=== PATIENT | female | born 1950 | race African-American/Black ===

== ENCOUNTER → 2016-09-17 | Outpatient (CLI) | payer BC ==
[~2016-09-17] MED LIST: ACTOS; ACTOS PO; AMARYL; AMARYL PO; B-COMPLEX1 TAB PO; BYDUREON P2 MG/0.65 SUBQ; BYSTOLIC5 MG PO; CALCIUM 500 + D1 TAB; CALCIUM 500 + D1 TAB PO; CELECOXIB200 MG PO; CINNAMON ALPHA1 EACH PO; FERROUS SULFATE; FLEXERIL PO; LIPITOR; LIPITOR PO; LISINOPRIL; METFORMIN; METFORMIN PO; MULTI-VITAMIN1 TAB; MUSCLE RELAXER; NORVASC; NORVASC PO; PREMPRO 0.3 MG/1 TAB PO; PROGESTERONE PO; PROGESTERONE200 MG PO
[2016-09-17 12:11] LABS: BLOOD UREA NITROGEN 21 mg/dL (9-23); CALCIUM SERUM 9.7 mg/dL (8.4-10.2); CARBON DIOXIDE 28 mmol/L (22-31); CHLORIDE 104 mmol/L (100-111); CREATININE SERUM 0.7 mg/dL (0.6-1.4); GLOM FILT RATE Estimated ABOVE60 mL/min (>60); GLUCOSE FASTING 114 mg/dL (70-110); POTASSIUM 4.1 mmol/L (3.5-5.1); SODIUM 140 mmol/L (135-145)
== END | disposition home or self-care (01) ==
LOC: CLAB 10:31
PROVIDERS: Internal Medicine Endocrinology, Diabetes & Metabolism
DX: E11.65 Type 2 diabetes mellitus with hyperglycemia (principal); E78.4 Other hyperlipidemia
CPT/HCPCS: 36415; 80048; 83036

== ENCOUNTER → 2016-12-11 | Outpatient (CLI) | payer BC ==
--- NOTE | ~2016-12-11 | US37 ---
[facility] A Service of [facility] & [facility] RADIOLOGY TEXT RESULTS PATIENT: TORIBIO MALAVE LOCATION: CNIV : 50 UNIT #: [id number] AGE: [address]: Kayleigh Barrera MD SEX: F ORDER DR: [id number] [facility] [address] [place], [place] [address] [id number] O MR#: [id number] Acc #: [id number] NAME: TORIBIO MALAVE : 1950 SEX: F STUDY DATE/TIME: 12/11/2016 15:33 UNIT: CNIV ROOM: STUDY DESCRIPTION: US Carotid W/Doppler Bilateral Attending Physician: Kayleigh Barrera M.D. Referring Physician: Kayleigh Barrera M.D. Ordering Physician: Kayleigh Barrera M.D. Primary Care Physician: Kayleigh Barrera M.D. MEDICAL IMAGING REPORT This report is preliminary unless electronic signature is present EXAM Carotid duplex scan, 12/11/2016. HISTORY Dizziness and headaches. FINDINGS The right common carotid artery has no significant plaque. The right internal and external carotid arteries are patent without plaque. Peak systolic velocity in the mid right internal carotid artery is 64 cm/sec with an end diastolic velocity of 18 cm/sec. The ICA:CCA ratio on the right is 0.63. Peak systolic velocity in the right external carotid artery is 92 cm/sec. The right vertebral artery is patent with antegrade flow. The left common carotid artery has no significant plaque. The left internal and external carotid arteries are patent without plaque. Peak systolic velocity in the mid left internal carotid artery is 63 cm/sec, with an end diastolic velocity of 18 cm/sec. The ICA:CCA ratio on the left is 0.67. Peak systolic velocity in the left external carotid artery is 70 cm/sec. The left vertebral artery is patent with antegrade flow. IMPRESSION 1. Normal examination of the internal and external carotid arteries bilaterally. No significant stenosis of the carotid arteries on either side. 2. Patient vertebral arteries bilaterally with antegrade flow. Dictated by... Errol Fish M.D. [facility] A Service of [facility] & [facility] RADIOLOGY TEXT RESULTS PATIENT: TORIBIO MALAVE LOCATION: CNIV : 50 UNIT #: [id number] AGE: [address]: Kayleigh Barrera MD SEX: F ORDER DR: THIS IS AN ELECTRONICALLY VERIFIED REPORT Errol Fish M.D. at 12/12/2016 7:32 AM Samantha TD: 12/11/2016 17:41 JOB #: [id number] MEDICAL IMAGING REPORT Page 1 of 1 COPY
--- NOTE | ~2016-12-11 | CT71 ---
[facility] A Service of [facility] RADIOLOGY TEXT RESULTS PATIENT: TORIBIO MALAVE LOCATION: CNIV : 50 UNIT #: [id number] AGE: [address]: Kayleigh Barrera MD SEX: F ORDER DR: [id number] [place] [id number] [facility]. [place], [place] [address] [id number] O MR#: [id number] Acc #: [id number] NAME: TORIBIO MALAVE : 1950 SEX: F STUDY DATE/TIME: 12/11/2016 16:03 UNIT: CNIV ROOM: STUDY DESCRIPTION: CT Head Wo Contrast Attending Physician: Kayleigh Barrera M.D. Referring Physician: Kayleigh Barrera M.D. Ordering Physician: Kayleigh Barrera M.D. Primary Care Physician: Kayleigh Barrera M.D. MEDICAL IMAGING REPORT This report is preliminary unless electronic signature is present EXAM CT head without contrast INDICATION Dizziness and headaches on and off for 2-1/[address] images were obtained from the vertex of the skull through the skull base. No intravenous contrast material was administered. All CT scans at this facility use dose modulation, iterative reconstruction, and/or weight based dosing when appropriate to reduce radiation dose to be as low as reasonably achievable. FINDINGS No acute intracranial hemorrhage is identified. Brain parenchyma is normal in attenuation with no focal areas of decreased attenuation seen. There is no midline shift or mass effect. The visualized paranasal sinuses and mastoid air cells are clear. There are no focal soft tissue abnormalities. IMPRESSION Negative Dictated by... Shelli Yee M.D. THIS IS AN ELECTRONICALLY VERIFIED REPORT Shelli Yee M.D. at 12/12/2016 4:44 PM AFF/js TD: 12/11/2016 18:41 [facility] A Service of [facility] RADIOLOGY TEXT RESULTS PATIENT: TORIBIO MALAVE LOCATION: CNIV : 50 UNIT #: [id number] AGE: [address]: Kayleigh Barrera MD SEX: F ORDER DR: JOB #: [id number] MEDICAL IMAGING REPORT Page 1 of 1 COPY
== END | disposition home or self-care (01) ==
LOC: CNIV 14:57
DX: R42 Dizziness and giddiness (principal)
CPT/HCPCS: 70450; 93880

== ENCOUNTER → 2017-01-14 | Outpatient (CLI) | payer BC | END | disposition home or self-care (01) | LOC: CLAB 12:41 | DX: E11.65 Type 2 diabetes mellitus with hyperglycemia (principal) | CPT/HCPCS: 36415; 83036 ==